=== PATIENT | female | born 1950 | race Caucasian/White ===

== ENCOUNTER 2016-06-01 11:43 | Outpatient (CLI) | payer OTHER ==
--- NOTE | 2016-06-02 07:40 | RAD ---
PA AND LATERAL OF THE CHEST 06/01/16 INDICATION: Congestion. COMPARISON: None. FINDINGS: The lungs are clear. The cardiomediastinal silhouette is within normal limits. There is mild spondyl osis of the thoracic spine. IMPRESSION: No acute cardiopulmonary abnormality. POS: H
== END 2016-06-01 11:44 | disposition home or self-care (01) ==
LOC: MADRAD 11:43
PROVIDERS: ATTEND Nurse Practitioner Family
DX: R09.89 Other specified symptoms and signs involving the circulatory and respiratory systems (principal); R06.2 Wheezing; R09.02 Hypoxemia
CPT/HCPCS: 71020